=== PATIENT | male | born 2000 | race Asian ===

== ENCOUNTER 2019-07-31 01:16 | Inpatient (IN) | payer OTHER ==
[~2019-07-31] VITALS: Ht 172.7 cm; Wt 91.8 kg
[2019-07-31 05:54] LABS: BASOPHILS % (AUTO) 0.7 % (0.0-2.0); EOSINOPHILS % (AUTO) 0.9 % (1.0-6.0); HEMATOCRIT 42.1 % (41-53); HEMOGLOBIN 14.3 g/dL (13.5-17.5); LYMPHOCYTES # (AUTO) 2.4 K/uL (1.0-4.8); LYMPHOCYTES % (AUTO) 36.4 % (22.0-44.0); MEAN CORPUSCULAR HEMOGLOBIN 31.2 pg (26.0-34.0); MEAN CORPUSCULAR VOLUME 92 fL (80-100); MONOCYTES # (AUTO) 0.6 K/uL (0.1-1.0); NEUTROPHILS # (AUTO) 3.5 K/uL (1.8-7.7); PLATELET COUNT (AUTO) 223 K/uL (150-450); RED BLOOD CELL COUNT(AUTO) 4.59 MIL/uL (4.50-5.90); RED CELL DISTRIBUTION WIDTH 12.6 % (11.5-14.5)
[2019-07-31 06:09] LABS: ANION GAP 6 mmol/L (8-16); CALCIUM, TOTAL 8.8 mg/dL (8.8-10.5); CARBON DIOXIDE 30 mmol/L (22-29); CHLORIDE 106 mmol/L (98-107); CREATININE 0.65 mg/dL (0.60-1.30); GLOMERULAR FILTR. RATE CALC > 60 mL/min (>60); GLUCOSE,RANDOM 103 mg/dL (70-110); POTASSIUM 3.9 mmol/L (3.5-5.1); SODIUM SERUM 142 mmol/L (136-145); UREA NITROGEN, BLOOD 14 mg/dL (7-18)
[2019-07-31 06:14] LABS: ALANINE AMINOTRANSFERASE 30 U/L (12-78); ALKALINE PHOSPHATASE 48 U/L (46-116); ASPARTATE AMINOTRANSFERASE 20 U/L (15-37); BILIRUBIN,TOTAL 0.6 mg/dL (0.1-1.0); TOTAL PROTEIN, SERUM 7.5 g/dL (6.4-8.2)
[2019-07-31] MEDS ORDERED: ZOLPIDEM TARTRATE 10 MG TABLET PO PRN (08:45)
[2019-07-31] MEDS ORDERED: HALOPERIDOL 5 MG TABLET PO PRN (08:45)
[2019-07-31] MEDS ORDERED: LORazepam 2 MG TABLET PO PRN (08:45)
[2019-07-31 10:19] VITALS: BP 137/87
[2019-07-31] MEDS ORDERED: ALBUTEROL SULFATE HFA 90 MCG/PUFF 8 GM INHALER IH PRN (16:00)
[2019-07-31] MEDS ORDERED: ONDANSETRON HCL 4 MG TABLET PO PRN (16:00)
[2019-07-31] MEDS ORDERED: CloNIDine HCL 0.1 MG TABLET PO PRN (16:00)
[2019-07-31] MEDS ORDERED: PETROLATUM,WHITE 28 GM JELLY TP PRN (16:00)
[2019-07-31] MEDS ORDERED: NICOTINE 14 MG/24 HOUR PATCH TD PRN (16:00)
[2019-07-31] MEDS ORDERED: DOCUSATE SODIUM 100 MG CAPSULE PO PRN (16:00)
[2019-07-31] MEDS ORDERED: GuaiFENesin/D-METHORPHAN [SUGAR-FREE] 200-20MG/10 ML SYRUP UDCUP PO PRN (16:00)
[2019-07-31] MEDS ORDERED: ACETAMINOPHEN 325 MG TABLET PO PRN (16:00)
[2019-07-31] MEDS ORDERED: IBUPROFEN 400 MG TABLET PO PRN (16:00)
[2019-07-31] MEDS ORDERED: MAGNESIUM HYDROXIDE SUSPENSION 30 ML UDCUP PO PRN (16:00)
[2019-07-31] MEDS ORDERED: LOPERAMIDE HCL 2 MG CAPSULE PO PRN (16:00)
[2019-07-31] MEDS ORDERED: MAG HYDROX/AL HYDROX/SIMETH ES 30 ML SUSPENSION UDCUP PO PRN (16:00)
[2019-07-31] MEDS: OLANZapine 5 MG TABLET PO SCH (16:07)
[2019-07-31 22:00] VITALS: BP 125/70
[2019-08-01] MEDS: OLANZapine 5 MG TABLET PO SCH (08:22)
[2019-08-01] MEDS: FLUoxetine HCL 20 MG CAPSULE PO SCH (08:22)
[2019-08-01 08:31] LABS: CHOL/HDL RATIO 2.2 (4.2-7.3); FREE T4 (FREE THYROXINE) 1.2 ng/dL (0.76-1.46); THYROID STIMULATING HORMONE 1.13 uIU/mL (0.36-3.74)
[2019-08-01 10:01] VITALS: BP 131/72
[2019-08-01 22:22] VITALS: BP 141/75
[2019-08-02] MEDS: OLANZapine 5 MG TABLET PO SCH (08:21)
[2019-08-02] MEDS: FLUoxetine HCL 20 MG CAPSULE PO SCH (08:21)
[2019-08-02 09:54] VITALS: BP 137/84
[2019-08-02 19:13] VITALS: BP 130/76
[2019-08-03 08:00] VITALS: BP 138/88
[2019-08-03] MEDS: FLUoxetine HCL 20 MG CAPSULE PO SCH (08:48)
[2019-08-03] MEDS: OLANZapine 5 MG TABLET PO SCH (08:48)
[2019-08-03] MEDS ORDERED: FLUO-191 PO (11:02)
[2019-08-03] MEDS ORDERED: OLAN5TAB2 PO (11:03)
== END 2019-08-03 13:15 | disposition home or self-care (01) | DRG 885 ==
LOC: EMS 01:16 → 3EI 09:11
DX: F25.1 Schizoaffective disorder, depressive type (principal); R45.851 Suicidal ideations; F10.10 Alcohol abuse, uncomplicated; F17.200 Nicotine dependence, unspecified, uncomplicated; F43.10 Post-traumatic stress disorder, unspecified; Z79.899 Other long term (current) drug therapy
CPT/HCPCS: 84439; 84443; G0480